=== PATIENT | male | born 2000 | race Caucasian/White ===

== ENCOUNTER 2023-09-18 19:55 | Emergency (ER) | payer MEDICAID ==
--- NOTE | 2023-09-18 21:20 | XRAY Report ---
PROCEDURE: Forearm RT INDICATIONS: Trauma TECHNIQUE: 2 views of the forearm were acquired. COMPARISON: X-ray wrist and hand 09/18/2023 FINDINGS: Bones: No fractures or dislocations. No suspicious bony lesions. Soft tissues: No suspicious soft tissue calcifications or masses. IMPRESSION: No visualized acute fracture or dislocation. However, occult injury cannot be excluded. Recommend aileen rt interval imaging follow-up in 7-10 days as clinically indicated for additional evaluation. Reviewed by: Bobbi Jacobson MD on 09/18/2023 9:19 PM PDT Approved by: Bobbi Jacobson MD on 09/18/2023 9:19 PM PDT Station ID: [id number]
--- NOTE | 2023-09-18 21:20 | XRAY Report ---
PROCEDURE: Wrist 3+V RT INDICATIONS: pain TECHNIQUE: 3 views of the wrist were acquired. COMPARISON: X-ray hand and forearm 09/18/2023. FINDINGS: Bones: No fractures or dislocations. No suspicious bony lesions. Soft tissues: No suspicious soft tissue calcifications or masses. IMPRESSION: No visualized acute fracture or dislocation. However, occult injury cannot be excluded. Recommend aileen rt interval imaging follow-up in 7-10 days as clinically indicated for additional evaluation. Reviewed by: Bobbi Jacobson MD on 09/18/2023 9:18 PM PDT Approved by: Bobbi Jacobson MD on 09/18/2023 9:18 PM PDT Station ID: [id number]
--- NOTE | 2023-09-18 21:46 | ED Physician Documentation ---
History of Present Illness - Stated complaint Stated Complaint: RT ARM PX - Chief complaint Chief Complaint: Trauma Ext - History obtained from History obtained from: Patient - History of Present Illness Pain level max: 7 Pain level now: 5 - Additonal information Additional information: Patient is a 23-year-old male who presents to the emergency department with right arm pain. He states it started when he was helping his brother move a fridge. He states that he felt something pull/pop in his arm. He states he works with a [employer] and the pain has continued to worsen the more he uses his arm. Patient is right-handed. PD PAST MEDICAL HISTORY - Past Medical History Past Medical History: Yes Endocrine/Autoimmune: None Psych: ADD/ADHD, Post traumatic stress disorder - Past Surgical History Past Surgical History: Yes - Present Medications Home Medications: Ambulatory Orders Medication Instructions Recorded Confirmed No Known Home Medications 09/18/23 09/18/23 - Allergies Allergies/Adverse Reactions: Allergies Allergy/AdvReac Type Severity Reaction Status Date / Time No Known Drug Allergies Allergy Verified 09/18/23 19:58 - Social History Does the pt smoke?: No Smoking Status: Never smoker Does the pt drink ETOH?: No Does the pt have substance abuse?: No - Immunizations Immunizations are current?: Yes - POLST Patient has POLST: No PD ED PE NORMAL - Vitals Vital signs reviewed: Yes - General General: Alert and oriented X 3, No acute distress - HEENT HEENT: Moist mucous membranes - Neck Neck: Supple, no meningeal sign - Derm Derm: Warm and dry - Extremities Extremities: Other (R forearm - Tender to palpation over the dorsal forearm, mainly over the extensor digitorum muscles as well as the extensor carpi radialis brevis. There is no significant swelling. No bruising. Neurovascular intact. Worse with movement of the wrist and fingers.) - Neuro Neuro: Alert and oriented X 3 - Psych Psych: Normal mood, Normal affect Results - Vitals Vitals: Vital Signs - 24 hr 09/18/23 09/18/23 19:59 22:15 Temperature 36.8 C 36.5 C Heart Rate 80 52 L Respiratory 16 16 Rate Blood Pressure 140/88 H 132/96 H O2 Saturation 99 100 Oxygen O2 Source Room air - Rads (name of study) Right wrist x-ray Relevant Findings:: Final report received, See rad report Right forearm x-ray Relevant Findings:: Final report received, See rad report PD Medical Decision Making - ED course Complexity details: reviewed results, re-evaluated patient, considered differential, d/w patient ED course: Patient with what appears to be a strain of the right forearm. No acute fin dings on x-ray. Placed in a Velcro splint for comfort. Feels much better. Was given Toradol and a dose of hydrocodone as well. Will have him follow-up with his doctor for further care. Patient is right-handed. Patient counseled regarding signs and symptoms for which I believe and urgent re-evaluation would be necessary. Patient with good understanding of and agreement to plan and is comfortable going home at this time This document was made in part using voice recognition software. While efforts are made to proofread this document, sound alike and grammatical errors may occur. Departure - Departure Disposition: 01 Home, Self Care Clinical Impression: Strain of forearm, right Qualifiers: Encounter type: initial encounter Qualified Code(s): S56.911A - Strain of unspecified muscles, fascia and tendons at forearm level, right arm, initial enc ounter Condition: Good Instructions: ED Strain Muscle Ext Follow-Up: your,doctor in 1 week [Other] Comments: Please wear the splint for the next several days, this will give your muscles and tendons time to rest. You can continue Motrin and Tylenol as needed for pain at home. You will need to be off work for the next several days. Your x- rays do not show any acute abnormalities. Please return if you worsen. Forms: PCP List, Activity restrictions Discharge Date/Time: 09/18/23 22:17
[2023-09-18] MEDS: HYDROcod/ACETAM 5/325 MG TABLET PO STA (21:48)
[2023-09-18] MEDS: KETOROLAC 60 MG/2 ML VIAL IM STA (21:49)
[2023-09-18 22:20] VITALS: BP 132/96; O2SAT 100
== END 2023-09-18 22:17 | disposition home or self-care (01) ==
LOC: ED 19:55
DX: S56.911A Strain of unspecified muscles, fascia and tendons at forearm level, right arm, initial encounter (principal)
CPT/HCPCS: 73090; 73110; 96372; 99283; A9270